=== PATIENT | male | born 1965 | race Asian ===

== ENCOUNTER → 2024-09-13 | Outpatient (CLI) | payer OTHER, SELFPAY ==
[2024-09-13 08:57] LABS: Alanine Aminotransferase 31 U/L (10-49); Albumin, Serum 4.5 gm/dL (3.5-5.0); Albumin/Globulin Ratio 2.1 (1.2-2.2); Alkaline Phosphatase 99 U/L (46-116); Anion Gap 6 (7-16); Aspartate Amino Transferase 23 U/L (0-34); BUN/Creatinine Ratio 14 Ratio (12-20); Bilirubin,Total 0.8 mg/dL (0.3-1.2); Blood Urea Nitrogen 11 mg/dL (9-23); Calcium 9.4 mg/dL (8.3-10.6); Calcium (Corrected) 9.4 mg/dL (8.5-10.1); Carbon Dioxide 29.2 mMol/L (20.0-31.0); Cardiac Risk Estimate 2.7 RATIO (4.0-6.7); Chloride 106 mMol/L (98-107); Cholesterol 168 mg/dL (132-200); Creatinine (Component) 0.8 mg/dL (0.6-1.3); Globulin 2.1 gm/dL (2.3-3.5); Glucose 124 mg/dL (74-106); HDL Cholesterol 62 mg/dL (40-60); LDL Cholesterol,Calculated 78 mg/dL (0-130); Osmolality,Calculated 281 (275-295); Potassium 4.2 mMol/L (3.4-5.1); Sodium 141 mMol/L (136-145); Total Protein 6.6 gm/dL (5.7-8.2); Triglycerides 139 mg/dL (30-150); eGFR > 60 See Note
[2024-09-13 09:17] LABS: Glucose Estimated Average 134 mg/dL (80-131); Hemoglobin A1C 6.3 % Hgb (4.8-6.0)
== END | disposition home or self-care (01) ==
PROVIDERS: PCP Family Medicine; Referring Provider Family Medicine; Visit Provider Family Medicine
DX: E79.0 Hyperuricemia without signs of inflammatory arthritis and tophaceous disease (principal); E11.59 Type 2 diabetes mellitus with other circulatory complications; E78.2 Mixed hyperlipidemia; I10 Essential (primary) hypertension
CPT/HCPCS: 36415; 80053; 80061; 83036; 84550

== ENCOUNTER → 2024-10-19 | Outpatient (CLI) | payer OTHER, MEDICAID, SELFPAY ==
[2024-10-19 13:45] LABS: Basophils % (Auto) 1 % (0-2.5); Eosinophils % (Auto) 1 % (0-10); Hematocrit 41.9 % (41.0-53.0); Hemoglobin 14.4 g/dL (13.5-16.0); Immature Granulocytes % (Auto) 0 % (0-0); Immature Granulocytes Auto 0.01 Thou/mm3 (0.00-0.00); Lymphocytes # (Auto) 0.7 Thou/mm3 (1.0-4.8); Lymphocytes % (Auto) 14 % (10-50); Mean Corpuscular HGB Conc 34.4 g/dl (31.0-37.0); Mean Corpuscular Hemoglobin 31.1 pg (25.0-35.0); Mean Corpuscular Volume 91 fL (80-100); Monocytes # (Auto) 0.8 Thou/mm3 (0.0-0.8); Monocytes % (Auto) 17 % (0-12); Neutrophils # (Auto) 3.3 Thou/mm3 (1.8-7.7); Neutrophils % (Auto) 67 % (37-80); Nucleated Red Blood Cell % 0 /100 WBC (0); Platelet Count 168 Thou/mm3 (140-440); RDW Standard Deviation 42.9 fL (35.1-43.9); Red Blood Count 4.63 Miln/mm3 (4.50-5.90); White Blood Count 4.9 Thou/mm3 (3.8-10.6)
[2024-10-20 14:31] LABS: Cocci Serology, IgM Negative (Negative)
[2024-10-21 14:51] LABS: Cocci Serology, IgG Negative (Negative)
== END | disposition home or self-care (01) ==
LOC: COPL 12:15
PROVIDERS: PCP Family Medicine; Referring Provider Family Medicine; Visit Provider Family Medicine
DX: R05.1 Acute cough (principal); Z86.19 Personal history of other infectious and parasitic diseases
CPT/HCPCS: 36415; 85025; 86171; 86331; 86635

== ENCOUNTER 2024-10-22 06:31 | Emergency (ER) | payer OTHER, MEDICAID, SELFPAY ==
[2024-10-22 06:32] VITALS: BMI 29.0
[2024-10-22 06:40] VITALS: BP 137/79; PULSE 76; RESP 18; TEMP 36.7; O2SAT 98
--- NOTE | 2024-10-22 07:01 | XR_ITS ---
Examination: PA lateral chest 2 views TECHNIQUE: Upright PA lateral chest 2 views Exam date and time: October 22, 2024 0814 hours Comparison February 02, 2024 INDICATIONS: Coughing difficulty breathing today and beginning one week ago with chest back and trunk pain FINDINGS: Normal heart size. Lungs are clear. The osseous structures are intact IMPRESSION: No active disease
--- NOTE | 2024-10-22 07:20 | EKG_ITS ---
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
--- NOTE | 2024-10-22 07:28 | PD.EDRME ---
Rapid Medical Screening Exam RME Arrival date/time: 10/22/24 06:31 58-year-old male with history of ACS, valley fever and diabetes currently out blood thinners presents with concerns for cough, congestion and pain on inspiration Chief Complaint: General Adult/Misc Complain Time Seen by Provider: 10/22/24 07:01 Vital signs: Vital Signs Temperature 98.1 F 10/22/24 06:40 Pulse Rate 76 10/22/24 06:40 Respiratory Rate 18 10/22/24 06:40 Blood Pressure 137/79 H 10/22/24 06:40 Pulse Oximetry (%) 98 10/22/24 06:40 Oxygen Delivery Method Room Air 10/22/24 06:40
[2024-10-22 07:50] LABS: Basophils % (Auto) 1 % (0-2.5); Eosinophils # (Auto) 0.2 Thou/mm3 (0.0-0.5); Eosinophils % (Auto) 5 % (0-10); Hematocrit 43.5 % (41.0-53.0); Hemoglobin 14.8 g/dL (13.5-16.0); Immature Granulocytes % (Auto) 0 % (0-0); Immature Granulocytes Auto 0.01 Thou/mm3 (0.00-0.00); Lymphocytes # (Auto) 1.3 Thou/mm3 (1.0-4.8); Lymphocytes % (Auto) 32 % (10-50); Mean Corpuscular Hemoglobin 30.5 pg (25.0-35.0); Mean Corpuscular Volume 90 fL (80-100); Monocytes # (Auto) 0.5 Thou/mm3 (0.0-0.8); Monocytes % (Auto) 13 % (0-12); Neutrophils % (Auto) 49 % (37-80); Nucleated Red Blood Cell % 0 /100 WBC (0); Platelet Count 171 Thou/mm3 (140-440); RDW Standard Deviation 41.7 fL (35.1-43.9); Red Blood Count 4.85 Miln/mm3 (4.50-5.90); White Blood Count 4.2 Thou/mm3 (3.8-10.6)
[2024-10-22 08:01] LABS: Glucose Estimated Average 140 mg/dL (80-131); Hemoglobin A1C 6.5 % Hgb (4.8-6.0)
[2024-10-22 08:22] LABS: Alanine Aminotransferase 30 U/L (10-49); Albumin/Globulin Ratio 1.9 (1.2-2.2); Alkaline Phosphatase 97 U/L (46-116); Anion Gap 5 (7-16); Aspartate Amino Transferase 20 U/L (0-34); BUN/Creatinine Ratio 13 Ratio (12-20); Bilirubin,Total 0.6 mg/dL (0.3-1.2); Blood Urea Nitrogen 10 mg/dL (9-23); Calcium 9.9 mg/dL (8.3-10.6); Calcium (Corrected) 9.9 mg/dL (8.5-10.1); Carbon Dioxide 32.6 mMol/L (20.0-31.0); Chloride 101 mMol/L (98-107); Creatinine (Component) 0.8 mg/dL (0.6-1.3); Estimated Creatinine Clearance 102.2 mL/min (>60); Globulin 2.7 gm/dL (2.3-3.5); Glucose 128 mg/dL (74-106); Osmolality,Calculated 278 (275-295); Potassium 3.9 mMol/L (3.4-5.1); Sodium 139 mMol/L (136-145); Total Protein 7.7 gm/dL (5.7-8.2); eGFR > 60 See Note
[2024-10-22 08:53] LABS: Troponin I 0.046 ng/mL (0.0-0.045)
[2024-10-22 11:05] LABS: Troponin I 0.044 ng/mL (0.0-0.045)
--- NOTE | 2024-10-22 11:20 | EDNOTE_ITS ---
ED General RME/HPI General Chief complaint: General Adult/Misc Complain Stated complaint: DIFF BREATHING, BACK AND TRUNK PAIN Time Seen by Provider: 10/22/24 07:01 Arrival date/time: 10/22/24 06:31 RME / HPI RME / HPI narrative: 58-year-old male patient with significant history of ACS, valley fever, diabetes mellitus, came in for evaluation regarding mid back pain. Onset of symptoms for few days, associated with mid back pain described as dull ache, severity moderate, pain is worse with deep breaths and coughing. Patient denies any trauma. Denies any dysuria denies any chest pain denies any other complaints no medications taken prior to arrival. Related Data Previous Rx's ?Medication ?Instructions ?Recorded lisinopril 10 mg tablet 10 mg PO QDAY #30 tabs 01/01/20 acetaminophen 500 mg tablet 500 mg PO Q6H PRN pain #30 tabs 03/18/23 cyclobenzaprine 10 mg tablet 10 mg PO TID PRN muscle spasm #30 10/22/24 tabs ibuprofen 600 mg tablet 600 mg PO TID PRN pain #30 tabs 10/22/24 Allergies Allergy/AdvReac Type Severity Reaction Status Date / Time aspirin Allergy Mild Rash Verified 10/22/24 06:35 morphine Allergy Unknown I FEEL Verified 10/22/24 06:35 LIKE I CANT BREATH PER PT Review of Systems Review of Systems Narrative Review of Systems: Review of system reviewed and within normal limits except mentioned in HPI ED Exam Narrative Physical exam: VITAL SIGNS: Reviewed. GENERAL APPEARANCE: Alert and interactive, follows commands, no acute distress, HEAD AND FACE: Non-traumatic. ENT: PERRL, pink conjunctivitis, eyelid no trauma, Mucous membrane moist. NECK: Supple, nontender, no nuchal rigidity. CHEST: No tenderness, no crepitus, no paradoxical movement, no retractions. LUNGS: Clear, well ventilated, symmetric, no rales, no wheezing, no ronchi, no stridor, good breath sounds bilaterally. HEART: Regular rate, regular rhythm, no murmur, no gallops. ABDOMEN: Soft, positive bowel sounds, nondistended, no guarding, nontender, no rebound, no masses, RECTAL: Deferred. GENITAL: Deferred. NEUROLOGICAL: Gross motor function intact sensory function intact, Appropriate for age. MUSCULOSKELETAL: Mid back tenderness, full range of motion. EXTREMITIES: Nontender, full range of motion. SKIN: Color pink, dry, no rash, no lacerations, no abrasions, no contusions. LYMPHATICS: Deferred. Course Quality Measures none Orders Category Date Time Status Bedside COVID-19 Antigen Test NOW Care 10/22/24 07:01 Active Bedside Influenza A&B Antigen Test NOW Care 10/22/24 07:01 Completed EKG (ED ONLY) *Do not use* NOW Care 10/22/24 07:20 Completed EKG (ED Only) Stat Exams 10/22/24 07:20 Draft XR chest 2V Stat Exams 10/22/24 07:01 Completed A1C [Glycohemoglobin w (eAG)] Stat Lab 10/22/24 07:30 Completed CBC Stat Lab 10/22/24 07:30 Completed CMP [Comprehensive Metabolic Panel] Stat Lab 10/22/24 07:30 Completed Troponin I Stat Lab 10/22/24 07:30 Completed Troponin I Stat Lab 10/22/24 10:33 Completed Vital Signs Vital signs: Vital Signs Temperature 98.1 F 10/22/24 06:40 Pulse Rate 76 10/22/24 06:40 Respiratory Rate 18 10/22/24 06:40 Blood Pressure 137/79 H 10/22/24 06:40 Pulse Oximetry (%) 98 10/22/24 06:40 Oxygen Delivery Method Room Air 10/22/24 06:40 [facility] Patient data External records reviewed:: None Clinical information provided by:: patient Social determinants that could affect healthcare access:: none Patient has the following chronic illnesses:: Diabetes mellitus, history of ACS, How is presenting disease/condition affected by chronic disease/condition?: e xacerbated by Evaluation data The following diagnostics were reviewed and interpreted by me:: lab results and radiology exam(s) Lab and/or radiology exams considered but not ordered:: None Interpretation Summary: Patient's workup today all came back unremarkable including troponin x 2. Initially the troponin was slightly elevated repeat troponin after 3 hours went back to normal. I personally reviewed and interpreted the x-ray of this patient. There is no acute abnormalities found, no infiltrates no pneumothorax no hemothorax normal chest x-ray. Review of other structures was without significant abnormal findings also. I additionally reviewed the radiologist report and agree with the interpretation. EKG as interpreted by me showed normal sinus rhythm, ventricular rate of 67 bpm, no ST segment elevation depression noted. Medications Medications considered but not ordered:: None Medication administrations:: None Consultations Consultation(s) initiated? (list below): No Diagnosis Differential Diagnosis ED Complaint MDM: Mid back pain, muscle pain, ACS Most likely diagnosis given after review of the tests above:: back pain Admission Indicated Admission indicated?: not indicated Explain why admission is indicated or not indicated:: Stable Admission Request Was there a request for admission?: No Disposition Plan Disposition Plan: Discharge Discharge Attestation Discharge Attestation: The patient was given an opportunity to ask questions and understood the discharge instructions. Discharge instructions specifically effects, indications for sooner follow up or return to the emergency department, and the expected course of current diagnosis. Patient condition: Stable Medical Decision Making MDM Narrative MDM Narrative: 58-year-old male patient with significant history of ACS, valley fever, diabetes mellitus, came in for evaluation regarding mid back pain. Onset of symptoms for few days, associated with mid back pain described as dull ache, severity moderate, pain is worse with deep breaths and coughing. Patient denies any trauma. Denies any dysuria denies any chest pain denies any other complaints no medications taken prior to arrival. Patient's workup today all came back unremarkable including troponin x 2. Initially the troponin was slightly elevated repeat troponin after 3 hours went back to normal. I personally reviewed and interpreted the x-ray of this patient. There is no acute abnormalities found, no infiltrates no pneumothorax no hemothorax normal chest x-ray. Review of other structures was without significant abnormal findings also. I additionally reviewed the radiologist report and agree with the interpretation. EKG as interpreted by me showed normal sinus rhythm, ventricular rate of 67 bpm, no ST segment elevation depression noted. Results results discussed with the patient. At this time I did not suspect any ACS. Patient was advised to see PCP and for referral to physical therapy for the mid back pain. Further imaging is not needed patient is not showing any cauda equina syndrome. Differential Diagnosis Differential Diagnosis: Mid back pain, muscle pain, ACS Lab Data 10/22/24 07:30 10/22/24 07:30 Labs: Lab Results 10/22/24 10/22/24 Range/Units 07:30 10:33 WBC 4.2 (3.8-10.6) Thou/mm3 RBC 4.85 (4.50-5.90) Miln/mm3 Hgb 14.8 (13.5-16.0) g/dL Hct 43.5 (41.0-53.0) % MCV 90 (80-100) fL MCH 30.5 (25.0-35.0) pg MCHC 34.0 (31.0-37.0) g/dl RDW Std Deviation 41.7 (35.1-43.9) fL Plt Count 171 (140-440) Thou/mm3 Neut % (Auto) 49 (37-80) % Lymph % (Auto) 32 (10-50) % [place] % (Auto) 13 H (0-12) % Eos % (Auto) 5 (0-10) % Baso % (Auto) 1 (0-2.5) % Neut # (Auto) 2.0 (1.8-7.7) Thou/mm3 Lymph # (Auto) 1.3 (1.0-4.8) Thou/mm3 [place] # (Auto) 0.5 (0.0-0.8) Thou/mm3 Eos # (Auto) 0.2 (0.0-0.5) Thou/mm3 Baso # (Auto) 0.0 (0.0-0.2) Thou/mm3 Immature Gran # (Auto) 0.01 H (0.00-0.00) Thou/mm3 Absolute Nucleated RBC 0.00 (0.00-0.00) Thou/mm3 Immature Gran % 0 (0-0) % Nucleated RBC % 0 (0) /100 WBC Sodium 139 (136-145) mMol/L Potassium 3.9 (3.4-5.1) mMol/L Chloride 101 (98-107) mMol/L Carbon Dioxide 32.6 H (20.0-31.0) mMol/L Anion Gap 5 L (7-16) BUN 10 (9-23) mg/dL Creatinine 0.8 (0.6-1.3) mg/dL Estim Creat Clear Calc 102.2 (>60) mL/min eGFR > 60 (60 - ) See Note BUN/Creatinine Ratio 13 (12-20) Ratio Glucose 128 H (74-106) mg/dL Estimated Ave Glu mg/dL 140 H (80-131) mg/dL Hemoglobin A1c 6.5 H (4.8-6.0) % Hgb Calculated Osmolality 278 (275-295) Calcium 9.9 (8.3-10.6) mg/dL Corrected Calcium 9.9 (8.5-10.1) mg/dL Total Bilirubin 0.6 (0.3-1.2) mg/dL AST 20 (0-34) U/L ALT 30 (10-49) U/L Alkaline Phosphatase 97 (46-116) U/L Troponin I 0.046 H* 0.044 (0.0-0.045) ng/mL Total Protein 7.7 (5.7-8.2) gm/dL Albumin 5.0 (3.5-5.0) gm/dL Globulin 2.7 (2.3-3.5) gm/dL Albumin/Globulin Ratio 1.9 (1.2-2.2) Discharge Plan Plan Patient Disposition: HOME (Self Care) Disposition Comment: stable Prescriptions/Referrals Prescriptions/Med Rec: New cyclobenzaprine 10 mg tablet 10 mg PO TID PRN (Reason: muscle spasm) Qty: 30 0RF ibuprofen 600 mg tablet 600 mg PO TID PRN (Reason: pain) Qty: 30 0RF No Action lisinopril 10 mg tablet 10 mg PO QDAY Qty: 30 0RF acetaminophen 500 mg tablet 500 mg PO Q6H PRN (Reason: pain) Qty: 30 0RF Referrals: Jose L Encinas MD [Primary Care Provider] - In 1 week Problem List Clinical Impression: Acute mid back pain Patient/Caregiver Discharge Instructions Discharge Activity: activity as tolerated Education Materials: Back Safety Bed, ED Back Care Tips Additional Instructions: Thank you for the opportunity for serving you today. You are stable for discharged . You are advised to: Follow-up with your PCP in 1 to 2 days and ask your PCP to refer you to a physical therapy Return to ED for worsening of symptoms, fever, worsening back pain, weakness to bilateral lower extremity, bladder or bowel incontinence Increase oral fluids Take medication as prescribed Print Language: German Stand Alone Forms: [place] Award Info., Patient Portal Info Letter PA/MOIZ Supervising Physician SMILEY/MOIZ Supervising Physician: MD Delilah
== END 2024-10-22 11:44 | disposition home or self-care (01) ==
PROVIDERS: Nurse Practitioner Primary Care; Emergency Provider Emergency Medicine; PCP Family Medicine
DX: M54.6 Pain in thoracic spine (principal); R06.00 Dyspnea, unspecified; R79.89 Other specified abnormal findings of blood chemistry; R05.9 Cough, unspecified; R07.1 Chest pain on breathing
CPT/HCPCS: 36415; 71046; 80053; 83036; 84484; 85025; 87400; 87811; 93005; 99283

== ENCOUNTER → 2025-02-07 | Outpatient (CLI) | payer OTHER, SELFPAY ==
[2025-02-07 08:08] LABS: Collection Type, Urine Clean Catch
[2025-02-07 08:51] LABS: Bilirubin,Urine Negative (Negative); Blood,Urine Negative (Negative); Clarity,Urine Clear (Clear/Hazy); Color,Urine Colorless (Lt Yel-Yel); Glucose, Urine Negative (Negative); Ketones,Urine Negative (Negative); Leukocyte Esterase,Urine Negative (Negative); Nitrite,Urine Negative (Negative); Protein,Urine Negative (Neg - Trace); RBC,Urine 1 /hpf (0-3); Specific Gravity,Urine 1.006 (1.001-1.035); Squamous Epithelial Cell,Urine 1 /hpf (0-5); Urobilinogen,Urine Negative mg/dL (0.0-1.0); WBC,Urine < 1 /hpf (0-5)
[2025-02-07 08:55] LABS: Alanine Aminotransferase 34 U/L (10-49); Albumin, Serum 4.4 gm/dL (3.5-5.0); Albumin/Globulin Ratio 1.9 (1.2-2.2); Alkaline Phosphatase 98 U/L (46-116); Anion Gap 6 (7-16); Aspartate Amino Transferase 22 U/L (0-34); BUN/Creatinine Ratio 18 Ratio (12-20); Basophils # (Auto) 0.1 Thou/mm3 (0.0-0.2); Basophils % (Auto) 1 % (0-2.5); Bilirubin,Total 0.9 mg/dL (0.3-1.2); Blood Urea Nitrogen 14 mg/dL (9-23); Calcium 9.2 mg/dL (8.3-10.6); Calcium (Corrected) 9.2 mg/dL (8.5-10.1); Carbon Dioxide 29.8 mMol/L (20.0-31.0); Cardiac Risk Estimate 2.6 RATIO (4.0-6.7); Chloride 108 mMol/L (98-107); Cholesterol 164 mg/dL (132-200); Creatinine (Component) 0.8 mg/dL (0.6-1.3); Eosinophils # (Auto) 0.2 Thou/mm3 (0.0-0.5); Eosinophils % (Auto) 5 % (0-10); Globulin 2.3 gm/dL (2.3-3.5); Glucose 127 mg/dL (74-106); HDL Cholesterol 64 mg/dL (40-60); Hematocrit 42.2 % (41.0-53.0); Hemoglobin 13.9 g/dL (13.5-16.0); Immature Granulocytes % (Auto) 0 % (0-0); LDL Cholesterol,Calculated 77 mg/dL (0-130); Lymphocytes # (Auto) 1.5 Thou/mm3 (1.0-4.8); Lymphocytes % (Auto) 37 % (10-50); Mean Corpuscular HGB Conc 32.9 g/dl (31.0-37.0); Mean Corpuscular Hemoglobin 30.5 pg (25.0-35.0); Mean Corpuscular Volume 93 fL (80-100); Monocytes # (Auto) 0.3 Thou/mm3 (0.0-0.8); Monocytes % (Auto) 9 % (0-12); Neutrophils % (Auto) 49 % (37-80); Nucleated Red Blood Cell % 0 /100 WBC (0); Osmolality,Calculated 289 (275-295); Platelet Count 171 Thou/mm3 (140-440); Potassium 4.2 mMol/L (3.4-5.1); RDW Standard Deviation 43.1 fL (35.1-43.9); Red Blood Count 4.55 Miln/mm3 (4.50-5.90); Sodium 144 mMol/L (136-145); Total Protein 6.7 gm/dL (5.7-8.2); Triglycerides 117 mg/dL (30-150); Uric Acid 7.1 mg/dL (3.7-9.2); eGFR > 60 See Note
[2025-02-07 09:12] LABS: Creatinine MALB Rnd Ur 19 mg/dL (30-125); Microalbumin, Random Urine < 3 mg/L (0-300)
[2025-02-07 09:18] LABS: Glucose Estimated Average 140 mg/dL (80-131); Hemoglobin A1C 6.5 % Hgb (4.8-6.0)
== END | disposition home or self-care (01) ==
PROVIDERS: PCP Family Medicine; Referring Provider Family Medicine; Visit Provider Family Medicine
DX: Z00.00 Encounter for general adult medical examination without abnormal findings (principal); E11.59 Type 2 diabetes mellitus with other circulatory complications; E78.2 Mixed hyperlipidemia; I10 Essential (primary) hypertension
CPT/HCPCS: 36415; 80053; 80061; 81001; 82043; 82570; 83036; 84550; 85025

== ENCOUNTER → 2025-05-12 | Outpatient (CLI) | payer OTHER, SELFPAY ==
[2025-05-12 08:53] LABS: Glucose Estimated Average 143 mg/dL (80-131); Hemoglobin A1C 6.6 % Hgb (4.8-6.0)
[2025-05-12 09:03] LABS: Alanine Aminotransferase 25 U/L (10-49); Albumin, Serum 4.5 gm/dL (3.5-5.0); Albumin/Globulin Ratio 1.8 (1.2-2.2); Alkaline Phosphatase 111 U/L (46-116); Anion Gap 7 (7-16); Aspartate Amino Transferase 23 U/L (0-34); BUN/Creatinine Ratio 16 Ratio (12-20); Bilirubin,Total 0.8 mg/dL (0.3-1.2); Blood Urea Nitrogen 13 mg/dL (9-23); Calcium 9.3 mg/dL (8.3-10.6); Calcium (Corrected) 9.3 mg/dL (8.5-10.1); Carbon Dioxide 27.3 mMol/L (20.0-31.0); Cardiac Risk Estimate 2.3 RATIO (4.0-6.7); Chloride 107 mMol/L (98-107); Cholesterol 150 mg/dL (132-200); Creatinine (Component) 0.8 mg/dL (0.6-1.3); Globulin 2.5 gm/dL (2.3-3.5); Glucose 131 mg/dL (74-106); HDL Cholesterol 64 mg/dL (40-60); LDL Cholesterol,Calculated 73 mg/dL (0-130); Osmolality,Calculated 283 (275-295); Potassium 4.3 mMol/L (3.4-5.1); Sodium 141 mMol/L (136-145); Total Protein 7.0 gm/dL (5.7-8.2); Triglycerides 66 mg/dL (30-150); Uric Acid 7.1 mg/dL (3.7-9.2); eGFR > 60 See Note
== END | disposition home or self-care (01) ==
PROVIDERS: PCP Family Medicine; Referring Provider Family Medicine; Visit Provider Family Medicine
DX: E11.59 Type 2 diabetes mellitus with other circulatory complications (principal); E78.2 Mixed hyperlipidemia; I10 Essential (primary) hypertension; E79.0 Hyperuricemia without signs of inflammatory arthritis and tophaceous disease
CPT/HCPCS: 36415; 80053; 80061; 83036; 84550

== ENCOUNTER → 2025-07-22 | Outpatient (CLI) | payer BC, SELFPAY ==
--- NOTE | 2025-07-22 15:37 | XR_ITS ---
EXAMINATION: Cervical spine, 5 views Technique: Cervical spine AP, AP odontoid, lateral, bilateral obliques, 5 views Exam date and time: July 22, 2025, 1548 hours INDICATIONS: Neck pain beginning 1 week ago FINDINGS: Adequate alignment cervical vertebral bodies. No cervical fracture. Moderate to advanced degenerative disc disease C4-C5, C5-C6, C6-C7 with moderate bilateral neuroforaminal stenosis Intact odontoid IMPRESSION: Moderate to advanced degenerative disc disease C4-C5, C5-C6, C6-C7 with moderate bilateral neural foraminal stenosis
--- NOTE | 2025-07-22 15:37 | XR_ITS ---
Examination: Lumbar spine, 5 views Technique: Lumbar spine AP, lateral, coned lateral lower lumbar spine, bilateral obliques 5 views Exam date and time: July 22, 2025, 1548 hours INDICATIONS: Low back pain beginning 1 week ago. FINDINGS: Moderate bilateral facet arthropathy No acute fracture Mild to moderate diffuse lumbar degenerative disc disease No spondylolisthesis IMPRESSION: Mild to moderate diffuse lumbar degenerative disc disease
--- NOTE | 2025-07-22 15:37 | XR_ITS ---
Examination: Shoulder, right, 3 views Technique: Shoulder AP internal rotation, AP external rotation, Y view shoulder, 3 views Exam date and time : July 22, 2025, 1548 hours INDICATIONS: Right shoulder pain beginning 1 week ago FINDINGS: Mild narrowing glenohumeral joint No fractures or dislocation. No calcific tendinitis IMPRESSION: Mild narrowing glenohumeral joint
== END | disposition home or self-care (01) ==
PROVIDERS: PCP Family Medicine; Referring Provider Family Medicine; Visit Provider Family Medicine
DX: M50.321 Other cervical disc degeneration at C4-C5 level (principal); M48.02 Spinal stenosis, cervical region; M51.360 Other intervertebral disc degeneration, lumbar region with discogenic back pain only; M25.811 Other specified joint disorders, right shoulder
CPT/HCPCS: 72050; 72110; 73030

== ENCOUNTER → 2025-09-12 | Outpatient (CLI) | payer BC, SELFPAY ==
--- NOTE | 2025-09-12 10:30 | XR_ITS ---
Examination: MRI cervical spine without intravenous contrast Date and time of exam: September 12, 2025, 1131 hours INDICATIONS: Neck pain several years worse the last 3 months radiating to the right shoulder weakness in the right shoulder and arm Technique: Multiple axial and sagittal sections of the cervical spine to been obtained. T2 weighted sagittal sections, TR 3, 270, TE 117 T1-weighted sagittal sections, TR 500, TE 11 T1-weighted axial sections, TR 607, TE 12, axial sections TR 18, TE 27 and T2 weighted transverse sections, TR 3920, TE 122. Findings: Adequate alignment cervical vertebral bodies. No cervical fracture. Atrophic odontoid. Diffuse cervical disc desiccation Mild disc narrowing C5-C6 C6-C7 No localized enlargement cervical cord C2-C3 no disc protrusion C3-C4 4 mm central subarticular osteophyte disc complex, indenting ventral margin cervical cord, advanced bilateral neuroforaminal stenosis C4-C5 2 mm central paracentral osteophyte disc complex, moderate bilateral neural foraminal stenosis C5-C6 4 mm central subarticular osteophyte disc complex, indenting ventral margin cervical cord, advanced bilateral neuroforaminal stenosis C6-C7 2 mm central subarticular osteophyte disc complex, advanced bilateral neuroforaminal stenosis C7-T1 advanced right neural foraminal stenosis IMPRESSION: Severe acquired spinal stenosis C3-C4, C5-C6 as above Significant neuroforaminal stenosis as above
== END | disposition home or self-care (01) ==
LOC: SMRI 10:01
PROVIDERS: PCP Family Medicine; Referring Provider Family Medicine; Visit Provider Family Medicine
DX: M48.02 Spinal stenosis, cervical region (principal)
CPT/HCPCS: 72141

== ENCOUNTER → 2025-09-19 | Outpatient (CLI) | payer BC, SELFPAY ==
[2025-09-19 08:31] LABS: Alanine Aminotransferase 28 U/L (10-49); Albumin, Serum 4.4 gm/dL (3.5-5.0); Albumin/Globulin Ratio 1.6 (1.2-2.2); Alkaline Phosphatase 89 U/L (46-116); Anion Gap 9 (7-16); Aspartate Amino Transferase 22 U/L (0-34); BUN/Creatinine Ratio 13 Ratio (12-20); Bilirubin,Total 0.8 mg/dL (0.3-1.2); Blood Urea Nitrogen 9 mg/dL (9-23); Calcium 9.2 mg/dL (8.3-10.6); Calcium (Corrected) 9.2 mg/dL (8.5-10.1); Carbon Dioxide 30.5 mMol/L (20.0-31.0); Cardiac Risk Estimate 2.7 RATIO (4.0-6.7); Chloride 104 mMol/L (98-107); Cholesterol 162 mg/dL (132-200); Creatinine (Component) 0.7 mg/dL (0.6-1.3); Globulin 2.7 gm/dL (2.3-3.5); Glucose 131 mg/dL (74-106); HDL Cholesterol 61 mg/dL (40-60); LDL Cholesterol,Calculated 46 mg/dL (0-130); Osmolality,Calculated 285 (275-295); Potassium 4.2 mMol/L (3.4-5.1); Sodium 143 mMol/L (136-145); Total Protein 7.1 gm/dL (5.7-8.2); Triglycerides 276 mg/dL (30-150); eGFR > 60 See Note
[2025-09-19 08:44] LABS: Glucose Estimated Average 154 mg/dL (80-131); Hemoglobin A1C 7.0 % Hgb (4.8-6.0)
== END | disposition home or self-care (01) ==
LOC: COPL 07:30
PROVIDERS: PCP Family Medicine; Referring Provider Family Medicine; Visit Provider Family Medicine
DX: E11.69 Type 2 diabetes mellitus with other specified complication (principal); E78.2 Mixed hyperlipidemia; I10 Essential (primary) hypertension
CPT/HCPCS: 36415; 80053; 80061; 83036